=== PATIENT | female | born 1950 | race Caucasian/White ===

== ENCOUNTER → 2017-06-02 | Outpatient (CLI) | payer MEDICARE, OTHER ==
[~2017-06-02] MED LIST: ACHD5005 PO; AMIT25TA9 PO; CIPR-225 PO; EST.625T PO; FLUO10CA19 PO; HYDR-3583 PO; LEVO125T6 PO; LEVO500T69 PO; LOSA1TAB20 PO; LVT.1T PO; METF750T2 PO; METR500T PO; NF-ESOM40C PO; OMEP40CA36 PO; PRM25T PO; PROP20TA5 PO; RANI25TA PO; SITA100T PO; TRAM-21 PO; TRIA16.5 NSEACH
--- NOTE | 2017-06-02 11:10 | Diagnostic Imaging Report ---
INDICATION: Routine screening. COMPARISON: 03/18/2016 and 01/23/2015. TECHNIQUE: Screening digital mammography was performed bilaterally with a Computer Aided Detection (CAD) system. FINDINGS: Scattered fibroglandular densities are noted bilaterally. There is a nodular density noted in the outer aspect of the right breast at posterior depth which appears stable when compared with the prior mammograms dating back to 2010. No new mass or malignant appearing microcalcifications are seen. There are scattered benign calcifications noted. The axillae are unremarkable. IMPRESSION: No mammographic features suspicious for malignancy are identified. ACR BI-RADS Category 2: Benign findings. Result letter will be mailed to the patient. Note: At least 10% of breast cancer is not imaged by mammography. Dictated by: Dictated on workstation # [id number]
== END ==
LOC: RAD 07:45
PROVIDERS: ATTEND Nurse Practitioner
DX: Z12.31 Encounter for screening mammogram for malignant neoplasm of breast (principal)
CPT/HCPCS: 77067

== ENCOUNTER → 2017-07-04 | Outpatient (CLI) | payer MEDICARE, OTHER ==
--- NOTE | 2017-07-04 08:59 | Diagnostic Imaging Report ---
PROCEDURE: CT sinuses without contrast TECHNIQUE: Multiple contiguous axial images were obtained through the sinuses without the use of intravenous contrast. Coronal and sagittal reformations were then performed. INDICATION: Sinus drainage and pressure. Patient has prior history of sinus surgery. COMPARISON: No prior studies are available for comparison. FINDINGS: Frontal sinus demonstrates minimal mucosal thickening. Ethmoid air cells are clear. The sphenoid sinus is clear. Mild mucosal thickening involving bilateral maxillary sinuses are noted. No air-fluid levels are seen. There has been partial resection of the medial kenny of the maxillary sinuses. The ostiomeatal complexes are patent bilaterally. There is nasal septal deviation to the right. The mastoid air cells are well aerated. IMPRESSION: Mild paranasal sinus mucosal disease. No air-fluid levels are seen to suggest acute sinusitis. Dictated by: Dictated on workstation # [id number]
== END ==
LOC: RAD 08:33
PROVIDERS: ATTEND Nurse Practitioner Family
DX: J32.8 Other chronic sinusitis (principal)
CPT/HCPCS: 70486

== ENCOUNTER 2017-08-07 08:24 | Day surgery (SDC) | payer MEDICARE, OTHER ==
[~2017-08-07] VITALS: Ht 157.5 cm; Wt 85.3 kg
[~2017-08-07 08:24] MED LIST changes: +CEFU250T80 PO; +DIPH25TA PO; +FLUO10TA PO; +MONT10TA24 PO; +SITA100T12 PO
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
[2017-08-07] MEDS ORDERED: AMPICILLIN/SULBACTAM INJECTION 1.5 GM in NS (IVPB) 100 ML IV ONE (08:30)
[2017-08-07] MEDS ORDERED: AMPICILLIN/SULBACTAM 1.5 GM/NS 100 ML IVPB IV ONE ×2 (08:30)
[2017-08-07] MEDS ORDERED: LACTATED RINGERS 1,000 ML IV PRN (08:41)
[2017-08-07 08:42] VITALS: BP 165/67
[2017-08-07] MEDS ORDERED: MIDAZOLAM 2 MG/2 ML (VERSED) VIAL IV ONE (08:45)
[2017-08-07] MEDS: LACTATED RINGERS 1,000 ML IV PRN ×2 (08:53→12:03)
--- NOTE | 2017-08-07 09:17 | Progress Note-Pre Operative ---
Pre-Operative Progress Note H&P Reviewed The H&P was reviewed, patient examined and no changes noted. Date Seen by Provider: August 07, 2017 Time Seen by Provider: 09:00 Date H&P Reviewed: August 07, 2017 Time H&P Reviewed: 09:00 Pre-Operative Diagnosis: Bilat Chronic SInusitis, Deviated Nasal Septum, Bilat Red of Inf Turbs LES WALSH MD August 07, 2017 9:17 am
[2017-08-07] MEDS ORDERED: LIDOCAINE/EPI 1%-1:200,000 (XYLOCAINE) 10 ML VIAL ONE (09:30)
[2017-08-07] MEDS ORDERED: BSS 15 ML ONE (09:30)
[2017-08-07] MEDS ORDERED: PHENYLEPHRINE 0.5% NASAL SPR (NEO-SYNEPHRINE) REG ONE (09:30)
[2017-08-07] MEDS ORDERED: COCAINE HCL 4% 2 ML SYR ONE (09:30)
[2017-08-07] MEDS ORDERED: fentaNYL INJECTION 100 MCG/2 ML AMP ONE (09:52)
[2017-08-07] MEDS ORDERED: proPOfol 200 MG/20 ML (DIPRIVAN) VIAL IV ONE (09:52)
[2017-08-07] MEDS ORDERED: SEVOFLURANE (ULTANE) 15 ML INHAL SOLN ONE ×5 (09:52→11:19)
[2017-08-07] MEDS ORDERED: LIDOCAINE PF 2% 5 ML (XYLOCAINE) VIAL ONE (09:52)
[2017-08-07] MEDS ORDERED: ROCURONIUM 10 MG/ML 5 ML SYRINGE IV ONE (09:52)
[2017-08-07] MEDS ORDERED: ONDANSETRON 4 MG/2 ML (SDV) Z0FRAN ONE (09:52)
[2017-08-07] MEDS ORDERED: morphine INJ 10 MG/ML 1ML (SYR OR VIAL) ONE (11:40)
[2017-08-07] MEDS ORDERED: GLYCOPYRROLATE 0.2 MG/ML (ROBINUL) 2 ML VIAL ONE (11:41)
[2017-08-07] MEDS ORDERED: NEOSTIGMINE 1 MG/ML 5 ML SYRINGE ONE (11:41)
[2017-08-07] MEDS ORDERED: D5 1/2 NS W/KCL 20 MEQ/L 1,000 ML IV SCH (11:43)
--- NOTE | 2017-08-07 11:43 | Progress Note-Post Operative ---
Post-Operative Progess Note Surgeon (s)/Traffic Sergeant (s) Surgeon LES WALSH MD Traffic Sergeant: none Pre-Operative Diagnosis Bilat Chronic SInusitis, Deviated Nasal Septum, Bilat Red of Inf Turbs Post-Operative Diagnosis same Procedure & Operative Findings Date of Procedure 08/07/17 Procedure Performed/Findings Bilat ESS, Nasal Septoplasty,Bialt REd of Inf Turbs Anesthesia Type get Estimated Blood Loss Estimated blood loss (mL): less than 50cc Specimens/Packing Specimens Removed bilat chornic sinus disease Packing: DNp-LES Brumfield MD August 07, 2017 11:43 am
[2017-08-07] MEDS ORDERED: HYDROcodone/APAP 5 MG/325 MG (LORTAB) TAB PO PRN (11:45)
[2017-08-07] MEDS ORDERED: PROMETHAZINE INJ 25 MG/ML (PHENERGAN) AMP IVP PRN ×2 (11:45→12:30)
[2017-08-07] MEDS ORDERED: ACETAMINOPHEN 325 MG TABLET/CAPLET (TYLENOL) PO PRN (11:45)
[2017-08-07] MEDS ORDERED: ONDANSETRON 4 MG/2 ML (SDV) Z0FRAN IVP PRN (12:00)
[2017-08-07] MEDS: morphine INJ 10 MG/ML 1ML (SYR OR VIAL) IVP PRN ×2 (12:04→12:09)
[2017-08-07 12:50] VITALS: BP 181/84
[2017-08-07 13:20] VITALS: BP 176/82
[2017-08-07 13:50] VITALS: BP 179/81
[2017-08-07 14:40] VITALS: BP 179/81
== END 2017-08-07 14:40 | disposition home or self-care (01) ==
LOC: SDC 08:24
PROVIDERS: ATTEND Otolaryngology Otolaryngology/Facial Plastic Surgery
DX: J32.2 Chronic ethmoidal sinusitis (principal); J32.0 Chronic maxillary sinusitis; J34.2 Deviated nasal septum; J34.3 Hypertrophy of nasal turbinates; E11.9 Type 2 diabetes mellitus without complications; I10 Essential (primary) hypertension; Z79.899 Other long term (current) drug therapy
CPT/HCPCS: 82962; 88305